=== PATIENT | male | born 1980 | race Caucasian/White ===

== ENCOUNTER 2018-06-18 08:23 | Day surgery (SDC) ==
[2018-06-18] MEDS: TETRACAINE 0.5% UNIT-DOSE OP PRN ×2 (10:10→10:40)
[2018-06-18] MEDS: BETADINE OPTH PREP OP PRN ×2 (10:10→10:40)
[2018-06-18] MEDS ORDERED: ZOFRAN 4 MG/2 ML IVP ONE (10:11)
[2018-06-18] MEDS ORDERED: LIDOCAINE 1%/PHENYLEPHRINE 1.5% BSS (SURGERY) INTRAOCULA ONE (10:11)
[2018-06-18] MEDS: CYCLOGYL 2% OPTH OP PRN ×3 (10:11→10:21)
[2018-06-18] MEDS ORDERED: DEX-MOXI-KETOR OPTH INJ 1/0.5/0.4 MG/ML IO ONE (10:11)
[2018-06-18] MEDS ORDERED: BRIMONIDINE TARTRATE 0.2% OPTH SOL OP PRN (10:11)
[2018-06-18] MEDS ORDERED: LIDOCAINE 1% 20 ML MDV ID STA (10:11)
[2018-06-18] MEDS ORDERED: BSS WITH EPINEPHRINE OP ONE (10:11)
[2018-06-18] MEDS ORDERED: SUBLIMAZE ONE (10:44)
[2018-06-18] MEDS ORDERED: ZOFRAN 4 MG/2 ML ONE (10:44)
[2018-06-18] MEDS ORDERED: VERSED ONE (10:44)
[2018-06-18 12:44] VITALS: TEMP 98.4
[2018-06-18 12:57] VITALS: BP 125/65
== END 2018-06-18 11:30 | disposition home or self-care (01) ==
LOC: SURG 08:23
PROVIDERS: ATTEND Ophthalmology
DX: H25.812 Combined forms of age-related cataract, left eye (principal)